=== PATIENT | female | born 1990 | race Caucasian/White ===

== ENCOUNTER 2022-06-13 09:17 | Emergency (ER) | payer OTHER, SELFPAY ==
--- NOTE | 2022-06-13 09:18 | ED.URI ---
HPI - URI/Sore Throat General Chief Complaint: Upper Respiratory Infection Stated Complaint: tonsils/glands swollen,it hurts to swallow Time Seen by Provider: 06/13/22 09:18 Source: patient Mode of arrival: ambulatory Limitations: no limitations History of Present Illness HPI Narrative: The is a 31-year-old female patient presenting to the clinic today with complaints of sore throat/swollen glands, and pain with swallowing. She reports her symptoms began 1-2 days ago. She denies any fever. MD elicited complaint: sore throat and nasal congestion Related Data Allergies Allergy/AdvReac Type Severity Reaction Status Date / Time No Known Allergies Allergy Verified 11/11/21 10:13 Review of Systems Review of Systems: Pertinent positives per HPI. Patient denies any fever, chills, rash, headache, visual changes, dizziness, cough, shortness of breath, chest pain, palpitations, nausea, vomiting, diarrhea, constipation, abdominal pain, or any urinary issues. PMFSH Past Medical History Medical History Depression with anxiety Genital herpes HSV (herpes simplex virus) infection Social History Social History Smoking status: Never smoker Second hand tobacco smoke exposure: No Alcohol intake: current Substance use: current Substance use type: marijuana Additional living arrangements comments: Partner Comments At the time of my signature, I reviewed and agree with the nursing past medical, surgical, social, and family history. There is no relevant family history pertinent to the patient complaint. Exam Narrative: General: Well-developed, well nourished, in no apparent distress Head: Normocephalic, atraumatic Eyes: Pupils equally round and reactive to light bilaterally, EOM intact, sclera and conjunctive clear, no discharge, lids normal Ears: TMs intact and clear, ear canals clear, no drainage, grossly hearing normal. Nose: Nares patent, no discharge, no inflammation, no sinus tenderness. Mouth: Oral pharynx without lesions or masses, good dentition, MMM. Oropharynx red with tonsillar swelling and white exudate bilaterally Neck: Supple, trachea midline, moderate enlargement of anterior or posterior cervical nodes, no thyroid masses or goiter palpable. Cardio: Regular rate and rhythm, s1 and s2 normal, no murmur appreciated. Resp: Clear to auscultation bilaterally, no rhonchi, rales, wheezing or rubs Course Course Emergency Course: Portions of this record may have been created with voice recognition software. Level of Care: Express Care Visit Vital Signs Vital signs: Vital Signs Temperature 36.8 C 06/13/22 09:36 Pulse Rate 97 06/13/22 09:36 Respiratory Rate 16 06/13/22 09:36 Blood Pressure 129/80 06/13/22 09:36 Pulse Oximetry 100 06/13/22 09:36 Temperature 36.8 C 06/13/22 09:36 Pulse Rate 97 06/13/22 09:36 Respiratory Rate 16 06/13/22 09:36 Blood Pressure 129/80 06/13/22 09:36 Pulse Oximetry 100 06/13/22 09:36 Vital signs reviewed MDM - URI/Sore Throat MDM Narrative Medical decision making narrative: At the time of visit patient is resting comfortably on the exam table. Centor criteria 3/4 and we do not currently having a rapid strep screen so I will empirically treat. Prescription for amoxicillin was sent to the pharmacy and supportive measures were discussed with the patient she voiced understanding discharge instructions and agrees to treatment plan. Differential Diagnosis Differential diagnosis: Likely upper respiratory infection, otitis media, sinusitis, viral infection, bronchitis, influenza, pharyngitis and other (COVID) Discharge Plan Discharge Clinical Impression: Exudative pharyngitis Patient Disposition: Home, Self-Care Condition: Stable Instructions: Antibiotic Form, Pharyngitis (ED) Additional Instructions: Take p
[2022-06-13 09:36] VITALS: BP 129/80; PULSE 97; RESP 16; TEMP 36.8; O2SAT 100
== END 2022-06-13 09:44 | disposition home or self-care (01) ==
LOC: EXPGOSH 09:20
PROVIDERS: Emergency Provider Nurse Practitioner Family; PCP Family Medicine
DX: J02.9 Acute pharyngitis, unspecified (principal)
CPT/HCPCS: 99213; G0463

== ENCOUNTER 2025-04-30 08:18 | Outpatient (CLI) | payer BC, SELFPAY ==
[2025-04-30 12:55] LABS: Hematocrit 42.8 % (37.0-47.0); Hemoglobin 13.8 g/dL (12.0-15.0); Immature Granulocyte Percent A 0.2 % (0-0.5); Lymphocytes Absolute Auto 1.96 K/mm3 (0.9-3.2); Mean Corpuscular HGB Conc 32.2 g/dl (32-36); Mean Corpuscular Hemoglobin 30.5 pg (26-34); Mean Corpuscular Volume 94.5 fl (80-100); Nucleated Red Blood Cells Absolute Auto 0.000 K/mm3 (0.0-0.012); Nucleated Red Blood Cells Perc 0.0 % (0.0-0.2); Platelet Count Result 284 k/mm3 (150-375); Red Blood Count 4.53 M/mm3 (4.2-5.4); White Blood Count 4.6 K/mm3 (4.5-10.0)
[2025-04-30 13:02] LABS: Hemoglobin A1C 4.9 % (<5.7)
[2025-04-30 13:07] LABS: Alanine Aminotransferase 16 U/L (6-35); Albumin Level 4.5 g/dL (3.5-5.1); Alkaline Phosphatase 52 U/L (38-126); Anion Gap 7 mmol/L (4-12); Aspartate Amino Transferase 58 U/L (14-36); Bilirubin,Total 0.5 mg/dL (0.2-1.3); Blood Urea Nitrogen 20 mg/dL (7-17); Calcium 9.1 mg/dL (8.4-10.2); Carbon Dioxide 28 mmol/L (22-30); Chloride 103 mmol/L (98-107); Cholesterol 200 mg/dL (0-200); Estimated Glomerular Filt Rate > 60; Glucose 88 mg/dL (65-110); HDL Direct 85 mg/dL; Magnesium 2.4 mg/dL (1.6-2.3); Potassium 4.2 mmol/L (3.4-5.0); Sodium 138 mmol/L (137-145); Total Protein 7.5 g/dL (6.3-8.2); Triglycerides 57 mg/dL (<150)
[2025-04-30 13:36] LABS: Thyroid Stimulating Hormone Reflex 2.370 uIU/mL (0.465-4.68)
[2025-04-30 14:03] LABS: Vitamin B12 394.0 pg/mL (239-931)
== END 2025-04-30 08:19 | disposition home or self-care (01) ==
LOC: ANHGOSHLAB 08:18
PROVIDERS: PCP Family Medicine; Visit Provider Nurse Practitioner Family
DX: R73.9 Hyperglycemia, unspecified (principal); F41.8 Other specified anxiety disorders; F41.9 Anxiety disorder, unspecified
CPT/HCPCS: 36415; 80053; 80061; 82306; 82607; 83036; 83735; 84443; 85025